=== PATIENT | male | born 1980 | race Two or more races ===

== ENCOUNTER 2017-03-21 21:07 | Emergency (ER) | payer OTHER, BC ==
--- NOTE | 2017-03-21 22:46 | ER Document Report ---
HPI - HPI Patient complains to provider of: cut upper lip Onset: This evening Onset/Duration: Sudden Pain Level: 2 Context: 36 yo male accidentally cut upper lip with hammer. Tetanus not current. Associated Symptoms: None Exacerbated by: Denies Relieved by: Denies Similar symptoms previously: No Recently seen / treated by doctor: No - ROS ROS below otherwise negative: Yes Systems Reviewed and Negative: Yes All other systems reviewed and negative Past Medical History - General Information source: Patient - Social History Smoking Status: Never Smoker Chew tobacco use (# tins/day): No Frequency of alcohol use: Rare Drug Abuse: None Lives with: Spouse/Significant other Family History: Reviewed & Not Pertinent Patient has suicidal ideation: No Patient has homicidal ideation: No - Medical History Medical History: Negative Renal/ Medical History: Denies: Hx Peritoneal Dialysis Surgical Hx: Negative - Immunizations Hx Diphtheria, Pertussis, Tetanus Vaccination: Yes Vertical Provider Document - CONSTITUTIONAL Agree With Documented VS: Yes Exam Limitations: No Limitations General Appearance: No Apparent Distress - INFECTION CONTROL TRAVEL OUTSIDE OF THE [place] IN LAST 30 DAYS: No - HEENT HEENT: Normocephalic Notes: 3 mm middle upper lip cut. not thru and thru. teeth stable. - RESPIRATORY O2 Sat by Pulse Oximetry: 98 - NEURO Level of Consciousness: Awake, Alert, Appropriate - DERM Integumentary: Laceration - see above Course - Vital Signs Vital signs: Temp Pulse Resp BP Pulse Ox 98.8 F 80 16 124/78 98 03/21/17 21:11 03/21/17 21:11 03/21/17 21:11 03/21/17 21:11 03/21/17 21:11 Procedures - Laceration/Wound Repair Upper Time completed: 23:55 - upper lip Wound length (cm): 0.5 Wound's Depth, Shape: Linear Laceration pre-procedure: Sterile drapes applied, Other - surgisrub Anesthetic type: 1% Lidocaine Volume Anesthetic (mLs): 3 Wound explored: Clean Irrigated w/ Saline (mLs): 40 Wound Repaired With: Sutures Suture Size/Type: 5:0, Prolene Number of Sutures: 2 Post-procedure NV exam normal: Yes Complications: No Notes: 03/21/17 23:57 bacitracin Discharge - Discharge Clinical Impression: upper lip cut repair Condition: Good Disposition: HOME, SELF-CARE Instructions: Facial Laceration ([facility]), Tetanus Immunization Given ([facility]) Additional Instructions: keep the sutures clean bacitracin sutures out in 5 days to er any concerns
[2017-03-21] MEDS ORDERED: LIDOCAINE 1% INJ-PF (10 MG/ML) 30 ML SDV INJ ONE (23:11)
[2017-03-21] MEDS ORDERED: DIPH/PERTUSS(ACELL)/TETANUS VAC/PF 0.5 ML SYR (>=10YO) IM ONE (23:11)
[2017-03-22 00:13] VITALS: BP 122/84
== END 2017-03-22 00:15 | disposition home or self-care (01) ==
LOC: ER 21:07
PROC: 0CQ0XZZ Repair Upper Lip, External Approach (ICD-10-PCS; principal; 2017-03-21)
DX: S01.511A Laceration without foreign body of lip, initial encounter (principal); W45.8XXA Other foreign body or object entering through skin, initial encounter
CPT/HCPCS: 99282; 90471; 90715; 12011; J3490

== ENCOUNTER 2017-05-12 09:39 | Emergency (ER) | payer BC, OTHER ==
[2017-05-12] MEDS ORDERED: NORMAL SALINE 1000 ML 1,000 ML IV PRN (10:52)
[2017-05-12] MEDS ORDERED: ONDANSETRON 4 MG TAB.RAPDIS PO ONE (10:55)
--- NOTE | 2017-05-12 10:55 | ER Document Report ---
ED Medical Screen (RME) - General Chief Complaint: Headache Stated Complaint: VOMITING Time Seen by Provider: 05/12/17 10:45 Mode of Arrival: Ambulatory Information source: Patient Notes: This is a 36-year-old man with a history of chronic back pain (meloxicam) and an overactive bladder who presents to the emergency room with fever, chills, sore throat, nausea and vomiting and headache. Patient states he first started getting a headache 4 days ago. He states that he has been taking acetaminophen (last took at 730 this morning). His temperature this morning was 100. He has reported a sore throat. He denies sick contacts. The patient denies neck pain. Patient has no photophobia in triage. His neck is supple. TRAVEL OUTSIDE OF THE [place] IN LAST 30 DAYS: No - Related Data Allergies/Adverse Reactions: acetaminophen [From Percocet] Allergy (Verified 05/12/17 10:45) oxycodone HCl [From Percocet] Allergy (Verified 05/12/17 10:45) Past Medical History - Social History Chew tobacco use (# tins/day): No Frequency of alcohol use: Occasional Drug Abuse: None - Past Medical History Cardiac Medical History: Denies: Hx Coronary Artery Disease, Hx Heart Attack, Hx Hypertension Pulmonary Medical History: Denies: Hx Asthma, Hx Bronchitis, Hx COPD, Hx Pneumonia Neurological Medical History: Denies: Hx Cerebrovascular Accident, Hx Seizures Renal/ Medical History: Denies: Hx Peritoneal Dialysis Musculoskeltal Medical History: Denies Hx Arthritis Past Surgical History: Denies: Hx Pacemaker - Immunizations Hx Diphtheria, Pertussis, Tetanus Vaccination: Yes Physical Exam - Vital signs Vitals: Temp Pulse Resp BP Pulse Ox 98.5 F 74 16 125/71 97 05/12/17 10:00 05/12/17 10:00 05/12/17 10:00 05/12/17 10:00 05/12/17 10:00 Course - Vital Signs Vital signs: Temp Pulse Resp BP Pulse Ox 98.5 F 74 16 125/71 97 05/12/17 10:00 05/12/17 10:00 05/12/17 10:00 05/12/17 10:00 05/12/17 10:00
[2017-05-12 11:43] LABS: ABSOLUTE MONOCYTES (AUTO) 0.3 10^3/uL (0.1-1.4); ABSOLUTE NEUT (AUTO) 3.8 10^3/uL (1.7-8.2); BASOPHILS % (AUTO) 0.5 % (0-2); HEMATOCRIT 43.3 % (37.9-51.0); HEMOGLOBIN 15.4 g/dL (13.5-17.0); LYMPHOCYTES % (AUTO) 19.3 % (13-45); MEAN CORPUSCULAR HEMOGLOBIN 29.5 pg (27.0-33.4); MEAN CORPUSCULAR HGB CONC 35.5 g/dL (32.0-36.0); MEAN CORPUSCULAR VOLUME 83 fl (80-97); MONOCYTES % (AUTO) 6.2 % (3-13); PLATELET COUNT 237 10^3/uL (150-450); RED BLOOD COUNT 5.21 10^6/uL (4.35-5.55); RED CELL DISTRIBUTION WIDTH 12.6 % (11.5-14.0); TOTAL CELLS COUNTED % (AUTO) 100 %; WHITE BLOOD COUNT 5.1 10^3/uL (4.0-10.5)
[2017-05-12 11:46] LABS: APPEARANCE,URINE CLEAR; BILIRUBIN,URINE NEGATIVE (NEGATIVE); COLOR,URINE YELLOW; GLUCOSE, URINE NEGATIVE (NEGATIVE); KETONES,URINE 80 mg/dL (NEGATIVE); LEUKOCYTE ESTERASE,URINE NEGATIVE (NEGATIVE); NITRITE,URINE NEGATIVE (NEGATIVE); PROTEIN,URINE 30 mg/dL (NEGATIVE); URINE SPECIFIC GRAVITY 1.034; UROBILINOGEN,URINE NEGATIVE mg/dL (<2.0)
[2017-05-12] MEDS ORDERED: KETOROLAC TROMETHAMINE INJ/PF 30 MG/1 ML SDV IV ONE (11:47)
[2017-05-12] MEDS ORDERED: NORMAL SALINE 1000 ML 1,000 ML IV ONE (11:47)
[2017-05-12 12:03] LABS: A TYPE INFLUENZA AG NEGATIVE (NEGATIVE)
[2017-05-12 12:04] LABS: B INFLUENZA AG NEGATIVE (NEGATIVE)
[2017-05-12] MEDS ORDERED: DEXAMETHASONE SOD PHOS INJ 10 MG/1 ML VIAL IV ONE (13:22)
[2017-05-12] MEDS ORDERED: AMOXICILLIN TRIHYDRATE 500 MG CAPSULE PO ONE (13:22)
--- NOTE | 2017-05-12 13:24 | ER Document Report ---
ED Headache - General Chief Complaint: Headache Stated Complaint: VOMITING Time Seen by Provider: 05/12/17 10:45 Mode of Arrival: Ambulatory Information source: Patient Notes: Patient is a 36-year-old male who presents to the ER today for sore throat, headache, fever, chills. Patient denies any cough, runny nose, neck pain, numbness or tingling anywhere. TRAVEL OUTSIDE OF THE [place] IN LAST 30 DAYS: No - Related Data Allergies/Adverse Reactions: acetaminophen [From Percocet] Allergy (Verified 05/12/17 10:45) oxycodone HCl [From Percocet] Allergy (Verified 05/12/17 10:45) Past Medical History - General Information source: Patient - Social History Smoking Status: Never Smoker Chew tobacco use (# tins/day): No Frequency of alcohol use: Occasional Drug Abuse: None Family History: Reviewed & Not Pertinent Patient has suicidal ideation: No Patient has homicidal ideation: No - Past Medical History Cardiac Medical History: Denies: Hx Coronary Artery Disease, Hx Heart Attack, Hx Hypertension Pulmonary Medical History: Denies: Hx Asthma, Hx Bronchitis, Hx COPD, Hx Pneumonia Neurological Medical History: Denies: Hx Cerebrovascular Accident, Hx Seizures Renal/ Medical History: Denies: Hx Peritoneal Dialysis Musculoskeltal Medical History: Denies Hx Arthritis Past Surgical History: Denies: Hx Pacemaker - Immunizations Hx Diphtheria, Pertussis, Tetanus Vaccination: Yes Review of Systems - Review of Systems Constitutional: See HPI EENT: See HPI Cardiovascular: No symptoms reported Respiratory: No symptoms reported Gastrointestinal: No symptoms reported Genitourinary: No symptoms reported Male Genitourinary: No symptoms reported Musculoskeletal: No symptoms reported Skin: No symptoms reported Hematologic/Lymphatic: No symptoms reported Neurological/Psychological: No symptoms reported Physical Exam - Vital signs Vitals: Temp Pulse Resp BP Pulse Ox 98.5 F 74 16 125/71 97 05/12/17 10:00 05/12/17 10:00 05/12/17 10:00 05/12/17 10:05/12/17 10:00 - Notes Notes: PHYSICAL EXAMINATION: GENERAL: Mildly ill-appearing, but in no acute distress. HEAD: Atraumatic, normocephalic. EYES: Pupils equal round and reactive to light, extraocular movements intact, sclera anicteric, conjunctiva are normal. ENT: ear canals without erythema or foreign body, TMs pearly mace with good bony landmarks, nares patent, oropharynx with erythematous tonsils bilaterally, enlarged, 2+ bilaterally, with exudates. Moist mucous membranes. NECK: Normal range of motion, supple with bilateral cervical lymphadenopathy LUNGS: CTAB and equal. No wheezes rales or rhonchi. HEART: Regular rate and rhythm without murmurs ABDOMEN: Soft, no tenderness. No guarding, no rebound BACK: no vertebral tenderness, normal ROM GI/: no CVA tenderness EXTREMITIES: Normal range of motion, no pitting edema. No cyanosis. NEUROLOGICAL: Cranial nerves grossly intact. Normal sensory/motor exams. PSYCH: Normal mood, normal affect. SKIN: Warm, Dry, normal turgor, no rashes or lesions noted Course - Re-evaluation Re-evalutation: 05/12/17 16:12 With history of fever, sore throat, lack of cough, exudate on exam, will treat clinically for strep throat with amoxicillin although strep swab was negative here. Flu negative, lab work ordered in triage negative for any acute pathology. - Vital Signs Vital signs: Temp Pulse Resp BP Pulse Ox 97.5 F 51 L 17 102/68 99 05/12/17 14:28 05/12/17 14:28 05/12/17 14:28 05/12/17 14:28 05/12/17 14:28 - Laboratory Result Diagrams: 05/12/17 11:18 05/12/17 12:59 Laboratory results interpreted by me: 05/12/17 05/12/17 11:18 12:59 Calcium 8.1 L Urine Protein 30 H Urine Ketones 80 H Urine Ascorbic Acid 40 H Discharge - Discharge Clinical Impression: Strep pharyngitis Condition: Stable Disposition: HOME, SELF-CARE Additional Instructions: Return immediately for any new or worsening symptoms. Follow up with primary care provider, call tomorrow to make followup appointment. Prescriptions: Amoxicillin 500 mg PO TID #30 capsule Nystatin/Dexameth/Diphen [Magic Mouthwash ([facility] Formula) Susp] 5 ml PO QID #120 ml Referrals: SHAHEED LEWIS MD [Primary Care Provider] - Follow up as needed
[2017-05-12 13:32] LABS: ALANINE AMINOTRANSFERASE 38 U/L (21-72); ALBUMIN 3.5 g/dL (3.5-5.0); ALKALINE PHOSPHATASE 56 U/L (38-126); ANION GAP 7 (5-19); ASPARTATE AMINO TRANSFERASE 26 U/L (17-59); BILIRUBIN,DIRECT 0.4 mg/dL (0.0-0.4); BILIRUBIN,TOTAL 0.4 mg/dL (0.2-1.3); BLOOD UREA NITROGEN 10 mg/dL (7-20); CALCIUM 8.1 mg/dL (8.4-10.2); CARBON DIOXIDE 25 mmol/L (22-30); CHLORIDE 107 mmol/L (98-107); GLUCOSE 98 mg/dL (75-110); POTASSIUM 4.3 mmol/L (3.6-5.0); TOTAL PROTEIN 6.3 g/dL (6.3-8.2)
[2017-05-12] MEDS ORDERED: ONDANSETRON ODT 4 MG TAB (6 TAB/ER DISP) PO PRN (13:39)
[2017-05-12 14:30] VITALS: BP 102/68
== END 2017-05-12 14:30 | disposition home or self-care (01) ==
LOC: ER 09:39
DX: J02.0 Streptococcal pharyngitis (principal); R51 Headache; R50.9 Fever, unspecified; Z88.6 Allergy status to analgesic agent
CPT/HCPCS: 99284; 96361; 96374; 96375; 36415; 87070; 87880; 85025; 80053; 81001; 87804; S0119; J1885; J7030; J1100

== ENCOUNTER 2018-05-01 06:02 | Day surgery (SDC) | payer OTHER ==
[2018-04-24 11:49] LABS: INTERNATIONAL RATION (INR) 0.94
[2018-04-24 11:50] LABS: APPEARANCE,URINE SLIGHTLY-CLOUDY; BILIRUBIN,URINE NEGATIVE (NEGATIVE); COLOR,URINE YELLOW; GLUCOSE, URINE NEGATIVE (NEGATIVE); KETONES,URINE NEGATIVE (NEGATIVE); LEUKOCYTE ESTERASE,URINE NEGATIVE (NEGATIVE); NITRITE,URINE NEGATIVE (NEGATIVE); PROTEIN,URINE NEGATIVE (NEGATIVE); URINE SPECIFIC GRAVITY 1.019; UROBILINOGEN,URINE NEGATIVE mg/dL (<2.0)
[2018-04-24 11:50] LABS: PARTIAL THROMBOPLASTIN TIME 26.4 SEC (23.5-35.8)
[2018-04-24 11:53] LABS: HEMOGLOBIN 16.2 g/dL (13.5-17.0); MEAN CORPUSCULAR HEMOGLOBIN 29.9 pg (27.0-33.4); MEAN CORPUSCULAR VOLUME 83 fl (80-97); PLATELET COUNT 227 10^3/uL (150-450); RED BLOOD COUNT 5.42 10^6/uL (4.35-5.55); RED CELL DISTRIBUTION WIDTH 13.4 % (11.5-14.0); WHITE BLOOD COUNT 5.4 10^3/uL (4.0-10.5)
[~2018-05-01 06:02] MED LIST: CEFAZOLIN 1 GM/D5W RTU 1 GM/50 ML RTUPB IV PRN; LACTATED RINGERS 1000 ML IV PRN; LIDOCAINE 0.5% INJ-PF (5 MG/ML) 50 ML SDV SUBCUT PRN; RINGERS SOLUTION,LACTATED 1,000 ML IV PRN
[2018-05-01] MEDS ORDERED: ONDANSETRON HCL INJ/PF 4 MG/2 ML SDV ONE ×2 (06:24→11:55)
[2018-05-01] MEDS ORDERED: FENTANYL CITRATE INJ/PF 100 MCG/2 ML AMPUL ONE (06:24)
[2018-05-01] MEDS ORDERED: MIDAZOLAM 2 MG/2 ML INJ ONE (06:24)
[2018-05-01] MEDS ORDERED: LIDOCAINE 2% INJ-PF (100 MG/5 ML) SYRINGE ONE (06:24)
[2018-05-01] MEDS ORDERED: PROPOFOL INJ 200 MG/20 ML VIAL IV ONE (06:25)
[2018-05-01] MEDS ORDERED: BUPIVACAINE HCL 0.5%-EPI 1:200000 INJ/PF 30 ML VIAL ONE (07:24)
[2018-05-01] MEDS ORDERED: LIDOCAINE 1% INJ-PF (10 MG/ML) 30 ML SDV ONE (07:24)
[2018-05-01] MEDS ORDERED: SODIUM BICARBONATE 8.4% INJ 50 MEQ/50 ML DISP.SYRIN ONE (07:26)
[2018-05-01] MEDS ORDERED: CEFAZOLIN 1 GM/D5W RTU 1 GM/50 ML RTUPB IV ONE (07:58)
[2018-05-01] MEDS ORDERED: DIPHENHYDRAMINE HCL 50 MG/ML VIAL IV PRN (09:32)
[2018-05-01] MEDS ORDERED: MEPERIDINE HCL/PF INJ 25 MG/1 ML DISP.SYRIN IV PRN (09:32)
[2018-05-01] MEDS ORDERED: FENTANYL CITRATE INJ/PF 100 MCG/2 ML AMPUL IV PRN ×3 (09:32)
[2018-05-01] MEDS ORDERED: MORPHINE SULFATE 10 MG/ML INJ IV PRN (09:32)
[2018-05-01] MEDS ORDERED: ONDANSETRON HCL INJ/PF 4 MG/2 ML SDV IV PRN (09:32)
[2018-05-01] MEDS ORDERED: PROMETHAZINE HCL INJ 25 MG/1 ML VIAL IV PRN ×2 (09:32)
[2018-05-01] MEDS ORDERED: CEFAZOLIN INJ 1 GM VIAL ONE (10:16)
[2018-05-01] MEDS ORDERED: HYDROCODONE/ACETAMINOPHEN 10-325 MG TABLET PO PRN (10:22)
--- NOTE | 2018-05-01 10:32 | OPERATIVE REPORT E ---
Operative Report NAME: SHAI RIVERA : 1980 AGE: 37Y DATE OF SURGERY: 05/01/2018 ROOM: PREOPERATIVE DIAGNOSIS: Nonfunctioning spinal cord stimulating system. POSTOPERATIVE DIAGNOSIS: Nonfunctioning spinal cord stimulating system. OPERATIVE PROCEDURE: Removal of spinal cord stimulator, pulse generator, and 2 leads followed by replacement of spinal cord stimulating leads, pulse generator with fluoroscopy for needle placement, and complex programming of pulse generator. SURGEON: MENDEZ MUHAMMAD M.D. ANESTHESIA: MAC. ESTIMATED BLOOD LOSS: 10 mL. SPECIMENS REMOVED: Pulse generator system, not sent to pathology. COMPLICATIONS: None. INDICATIONS: Positive relief with spinal cord stimulating system prior to breakage of system. PROCEDURE NOTE: After obtaining informed consent and advising the patient of the risks and benefits, including serious neurological injury, bleeding, infection, nonfunctioning of the system, inability to cover pain adequately, allergic reaction, and , he was taken to the operating room and placed comfortably in the prone position. Monitors were placed. He was prepped with chlorhexidine x2 with appropriate drying time prior to draping. Fluoroscopy was utilized to evaluate the position of the spinal cord stimulating system. The midline and pulse generator site on the left flank were anesthetized with 1% lidocaine with bicarb followed by 0.25% bupivacaine with epinephrine. Sharp and blunt dissection were performed down to the pulse generator. Electrocautery was used as necessary for hemostasis. The pulse generator was removed without difficulty. The leads were transected and the system was passed off. Betadine-soaked sponge was placed in the pulse generator site after incising the capsule to facilitate placement of the newer system. Attention was directed towards the midline lumbar region where the surgical leads were anchored. Again, sharp and blunt dissection were performed down to the anchor sites. Hemostasis was obtained with electrocautery as necessary. The old leads were removed in their entirety with their anchors without difficulty. Under fluoroscopy spinal needles were guided to the T12-T11 interspace, right and left paramedial locations, to facilitate placement of the new leads. Beginning on the right, a 14-gauge Tuohy needle was advanced into the epidural space without difficulty using loss of resistance to saline technique. No heme, cerebrospinal fluid, or paresthesias were noted. The electrode was flipped into this without difficulty and advanced several vertebral body spaces. This procedure was repeated on the left, again without difficulty. Lateral views were taken to assure proper location in the posterior epidural space. The leads were then advanced under fluoroscopic guidance up to the top of T9 on the right and the mid region of T8 on the left. It should be noted the right electrode was slightly more toward the right than para midline. The patient was aroused and questioned regarding stimulation. Stimulation was obtained in the appropriate locations, including the right lower extremity and the back primarily. The decision was made to proceed. The patient's MAC anesthesia was deepened. Pursestrings were placed around the needles with 0 Mersilene followed by distal stay sutures. The right Tuohy needle was then removed with care being taken not to dislodge the electrode. The pursestring was secured followed by placement of the anchor and securing of the anchor to the existing anchor stay sutures. This procedure was then repeated on the left. It should be noted that the leads did not move during securing of the leads to the anchors. The regions were then copiously irrigated again with Betadine-containing irrigation solution, and the skin edges were further anesthetized with bupivacaine with epinephrine at both surgical sites. The leads were then tunneled through an anesthetized pathway that was anesthetized with 1% lidocaine from the midline incision to the pulse generator site. Leads were connected to the battery and impedance was tested. Impedance was satisfactory. The hex nuts were then secured. After copious irrigation yet once again to both sites, wound closure was proceeded. Sponge counts and needle counts were correct. The pulse generator was placed into the pocket with the leads coiled behind it and the [employer] labeling facing the skin. The subcutaneous tissue was closed with 2-0 Polysorb Vicryl followed by a 3-0 Polysorb. The midline incision was closed in the same fashion. Once satisfactorily closed, Dermabond tape and Dermabond cement were placed. This was allowed to dry followed by placement of Telfa and sponge Tegaderm dressings. The patient was then taken to the PACU for further postoperative care and monitoring. He tolerated the entire procedure well and remained neurologically and hemodynamically intact. DICTATING PHYSICIAN: MENDEZ MUHAMMAD M.D. [id number] PHY#: [id number] ID: [id number] JOB#: [id number] ACCT: [id number] cc:MENDEZ MUHAMMAD M.D. >
--- NOTE | 2018-05-01 10:40 | RADIOLOGY REPORT (SQ) ---
EXAM DESCRIPTION: NO CHG FLUORO; THORACOLUMBAR SPINE AP/LAT COMPLETED DATE/TIME: 05/01/2018 10:24 am REASON FOR STUDY: SPINAL STIMULATOR PLCMT ASST W/ FLUORO IN OR M96.1 POSTLAMINECTOMY SYNDROME, NOT ELSEWHERE CLASSIFIED COMPARISON: None. FLUOROSCOPY TIME: 2.9 minutes. 8 images saved to PACS. TECHNIQUE: Intra-operative images acquired during surgical procedure to evaluate progress. NUMBER OF IMAGES: 8 images. LIMITATIONS: None. FINDINGS: Images of spine acquired during stimulator electrode placement. IMPRESSION: IMAGE(S) OBTAINED DURING PROCEDURE. COMMENT: Quality ID [id number]: Final reports for procedures using fluoroscopy that document radiation exp osure indices, or exposure time and number of fluorographic images (if radiation exposure indices are not available) Please consult full operative report of the attending physician for description of the procedure. TECHNICAL DOCUMENTATION: JOB ID: [id number] [email or web address]- All Rights Reserved Reading location - IP/workstation name: [email or web address]
--- NOTE | 2018-05-01 10:40 | RADIOLOGY REPORT (SQ) ---
EXAM DESCRIPTION: NO CHG FLUORO; THORACOLUMBAR SPINE AP/LAT COMPLETED DATE/TIME: 05/01/2018 10:24 am REASON FOR STUDY: SPINAL STIMULATOR PLCMT ASST W/ FLUORO IN OR M96.1 POSTLAMINECTOMY SYNDROME, NOT ELSEWHERE CLASSIFIED COMPARISON: None. FLUOROSCOPY TIME: 2.9 minutes. 8 images saved to PACS. TECHNIQUE: Intra-operative images acquired during surgical procedure to evaluate progress. NUMBER OF IMAGES: 8 images. LIMITATIONS: None. FINDINGS: Images of spine acquired during stimulator electrode placement. IMPRESSION: IMAGE(S) OBTAINED DURING PROCEDURE. COMMENT: Quality ID [id number]: Final reports for procedures using fluoroscopy that document radiation exp osure indices, or exposure time and number of fluorographic images (if radiation exposure indices are not available) Please consult full operative report of the attending physician for description of the procedure. TECHNICAL DOCUMENTATION: JOB ID: [id number]- All Rights Reserved Reading location - IP/workstation name: [email or web address]
[2018-05-01] MEDS: FENTANYL CITRATE INJ/PF 100 MCG/2 ML AMPUL ONE ×2 (10:50→10:55)
[2018-05-01] MEDS ORDERED: HYDROCODONE/ACETAMINOPHEN 10-325 MG TABLET ONE (11:39)
[2018-05-01 14:06] VITALS: BP 137/84
== END 2018-05-01 14:00 | disposition home or self-care (01) ==
LOC: OROUT 06:02
PROVIDERS: ATTEND Pain Medicine Interventional Pain Medicine
DX: T85.113A Breakdown (mechanical) of implanted electronic neurostimulator, generator, initial encounter (principal); Y83.8 Other surgical procedures as the cause of abnormal reaction of the patient, or of later complication, without mention of misadventure at the time of the procedure; M96.1 Postlaminectomy syndrome, not elsewhere classified; M54.16 Radiculopathy, lumbar region; M51.36 Other intervertebral disc degeneration, lumbar region; N32.81 Overactive bladder; Z79.899 Other long term (current) drug therapy; Z88.5 Allergy status to narcotic agent; Z87.891 Personal history of nicotine dependence
CPT/HCPCS: 63688; 63650; 36415; 85027; 85610; 85730; 81001; 72080; C1778; J2250; J3490 ×3; J0690 ×2; J3010; J2001; J2405; J2704; 1936